=== PATIENT | male | born 1985 | race Caucasian/White ===

== ENCOUNTER 2019-10-30 18:14 | Inpatient (IN) | payer SELFPAY ==
[~2019-10-30] VITALS: Ht 182.9 cm; Wt 78.1 kg
--- NOTE | 2019-10-30 18:28 | ED Back Pain ---
General Chief Complaint: Back Problems Stated Complaint: R SIDE PAIN Source of Information: Patient Exam Limitations: No Limitations History of Present Illness Date Seen by Provider: Oct 30, 2019 Time Seen by Provider: 18:25 Initial Comments To ER with c/o Right flank pain x4-5 weeks, intolerable today. He's had some cloudy dark urine he states and thought that he had a urinary tract infection but never sought treatment. He states that he doesn't leave his house months, isn't employed and hasn't left the [facility]. He is found to be febrile on arrival, reports a chronic "smoker's cough", no shortness of breath. Timing/Duration: Getting Worse, Intermittent Severity: Moderate Associated Symptoms: denies symptoms Allergies and Home Medications Allergies Coded Allergies: No Known Drug Allergies (Unverified , 10/30/19) Patient Home Medication List Home Medication List Reviewed: Yes Review of Systems Constitutional: see HPI EENTM: see HPI Respiratory: no symptoms reported Cardiovascular: no symptoms reported Genitourinary: no symptoms reported Musculoskeletal: see HPI Skin: no symptoms reported Psychiatric/Neurological: No Symptoms Reported Past Sqycrud-Yijvur-Vcajkr Hx Patient Social History Recent Foreign Travel: No Contact w/Someone Who Travel: No Physical Exam Vital Signs Vital Signs - First Documented 10/30/19 18:23 Temp 37.9 Pulse 109 Resp 19 B/P (MAP) 122/80 (94) O2 Delivery Room Air Capillary Refill : Height, Weight, BMI Height: '" Weight: lbs. oz. kg; BMI Method: General Appearance: No Apparent Distress, WD/WN HEENT: PERRL/EOMI, TMs Normal Neck: Full Range of Motion, Normal Inspection Cardiovascular: Normal Peripheral Pulses, Tachycardia Respiratory: No Accessory Muscle Use, No Respiratory Distress Gastrointestinal: Normal Bowel Sounds, Non Tender, Soft Back: CVA Tenderness (R) Extremity: Normal Capillary Refill Neurologic/Psychiatric: Alert, Oriented x3 Skin: Normal Color, Warm/Dry Progress/Results/Core Measures Results/Orders Lab Results Laboratory Tests Test 10/30/19 18:36 10/30/19 18:43 10/30/19 19:16 Range/Units White Blood Count 11.5 H 4.3-11.0 10^3/uL Red Blood Count 4.43 4.35-5.85 10^6/uL Hemoglobin 13.9 13.3-17.7 G/DL Hematocrit 40 40-54 % Mean Corpuscular Volume 90 80-99 FL Mean Corpuscular Hemoglobin 31 25-34 PG Mean Corpuscular Hemoglobin Concent 35 32-36 G/DL Red Cell Distribution Width 13.4 10.0-14.5 % Platelet Count 420 H 130-400 10^3/uL Mean Platelet Volume 9.8 7.4-10.4 FL Neutrophils (%) (Auto) 76 H 42-75 % Lymphocytes (%) (Auto) 14 12-44 % Monocytes (%) (Auto) 10 0-12 % Eosinophils (%) (Auto) 1 0-10 % Basophils (%) (Auto) 0 0-10 % Neutrophils # (Auto) 8.7 H 1.8-7.8 X 10^3 Lymphocytes # (Auto) 1.6 1.0-4.0 X 10^3 Monocytes # (Auto) 1.2 H 0.0-1.0 X 10^3 Eosinophils # (Auto) 0.1 0.0-0.3 10^3/uL Basophils # (Auto) 0.0 0.0-0.1 10^3/uL Sodium Level 133 L 135-145 MMOL/L Potassium Level 3.1 L 3.6-5.0 MMOL/L Chloride Level 101 98-107 MMOL/L Carbon Dioxide Level 21 21-32 MMOL/L Anion Gap 11 5-14 MMOL/L Blood Urea Nitrogen 6 L 7-18 MG/DL Creatinine 1.07 0.60-1.30 MG/DL Estimat Glomerular Filtration Rate > 60 BUN/Creatinine Ratio 6 Glucose Level 177 H 70-105 MG/DL Calcium Level 8.5 8.5-10.1 MG/DL Corrected Calcium 8.9 8.5-10.1 MG/DL Total Bilirubin 0.9 0.1-1.0 MG/DL Aspartate Amino Transf (AST/SGOT) 23 5-34 U/L Alanine Aminotransferase (ALT/SGPT) 35 0-55 U/L Alkaline Phosphatase 101 40-136 U/L Total Protein 7.5 6.4-8.2 GM/DL Albumin 3.5 3.2-4.5 GM/DL Urine Color YELLOW Urine Clarity CLOUDY Urine pH 6.5 5-9 Urine Specific [place] <=1.005 1.016-1.022 Urine Protein 1+ H NEGATIVE Urine Glucose (UA) NEGATIVE NEGATIVE Urine Ketones NEGATIVE NEGATIVE Urine Nitrite NEGATIVE NEGATIVE Urine Bilirubin 1+ H NEGATIVE Urine Urobilinogen 2.0 < = 1.0 MG/DL Urine Leukocyte Esterase 3+ H NEGATIVE Urine RBC (Auto) 1+ H NEGATIVE Urine RBC 0-2 /HPF Urine WBC >100 H /HPF Urine Crystals PRESENT H /LPF Urine Amorphous Sediment FEW LIVAN URATES H /LPF Urine Bacteria TRACE /HPF Urine Casts NONE /LPF Urine Mucus NEGATIVE /LPF Urine Culture Indicated YES My Orders Orders - MICHELLE PEREZ APRN Cbc With Automated Diff (10/30/19 18:22) Comprehensive Metabolic Panel (10/30/19 18:22) Ed Iv/Invasive Line Start (10/30/19 18:22) Ua Culture If Indicated (10/30/19 18:22) Ketorolac Injection (Toradol Injection) (10/30/19 18:30) Ct Abd/Pelvis Wo(Kidney Stone) (10/30/19 18:49) Potassium Chloride (Tablet) (Klor Con Ta (10/30/19 19:00) Urine Culture (10/30/19 18:43) Blood Culture (10/30/19 19:05) Lactic Acid Analyzer (10/30/19 19:05) Ceftriaxone For Iv Use (Rocephin For I (10/30/19 19:15) Ns Iv 1000 Ml (Sodium Chloride 0.9%) (10/30/19 19:15) Medications Given in ED Current Medications Medications Dose Ordered Sig/Keith Route Start Time Stop Time Status Last Admin Dose Admin Ceftriaxone Sodium 1000 mg/ Sterile Water 10 ml @ 200 mls/hr ONCE ONCE IV 10/30/19 19:15 10/30/19 19:17 DC 10/30/19 19:21 200 MLS/HR Ketorolac Tromethamine 15 mg ONCE ONCE IVP 10/30/19 18:30 10/30/19 18:31 DC 10/30/19 18:40 15 MG Potassium Chloride 40 meq ONCE ONCE PO 10/30/19 19:00 10/30/19 19:01 DC 10/30/19 18:58 40 MEQ Vital Signs/I&O 10/30/19 18:23 Temp 37.9 Pulse 109 Resp 19 B/P (MAP) 122/80 (94) O2 Delivery Room Air Diagnostic Imaging Diagonstic Imaging: CT Comments NAME: VIKA NEIL [facility] REC#: [id number] PT STATUS: REG ER : 1985 PHYSICIAN: MICHELLE PEREZ APRN ADMIT DATE: 10/30/19/ER Draft Date of Exam:10/30/19 CT ABD/PELVIS WO(KIDNEY STONE) PROCEDURE: CT urinary tract, rule out kidney stone. TECHNIQUE: Multiple contiguous axial images were obtained through the abdomen and pelvis without the use of intravenous contrast. Auto Exposure Controls were utilized during the CT exam to meet ALARA standards for radiation dose reduction. INDICATION: Right flank pain for several days. FINDINGS: The liver, gallbladder and bile ducts are normal. The spleen, pancreas and adrenals are normal. The kidneys, ureters and bladder are normal. The appendix is filled with air and is not dilated. This is a retrocecal appendix the tip behind the ascending colon. Adjacent to the tip is some mild inflammation with no focal mass or fluid collection. No appendicolith is seen. The adjacent colon appears normal. The small bowel is normal. There is no free intraperitoneal air or fluid. IMPRESSION: There are mild inflammatory changes adjacent to the tip of the appendix with the remainder of the appendix appearing normal. This could be a localized inflammation of the tip of the appendix. No other abnormality is seen. Dictated on workstation # [id number] Dict: 10/30/191914 Trans: 10/30/191919 [facility] [id number] Interpreted by: VIKA HARDING MD Electronically signed by: Departure Communication (Admissions) Time/Spoke to Admitting Phy: 19:[address] Medrano, he'll review the images as he is currently in a case. I then spoke with Dr. Mathur, these inflammatory changes around the tip of the appendix are likely from pyelonephritis in my opinion as he has a urinary tract infection, symptoms for a few weeks, and the tip of the appendix goes superiorly paralleling course of the ureter ending near the inferior aspect of the kidney Impression Primary Impression: Pyelonephritis Additional Impression: possible appendicitis Disposition: ADMITTED INPATIENT Condition: Stable Admissions Decision to Admit Reason: Admit from ER (General) Decision to Admit/Date: Oct 30, 2019 Time/Decision to Admit Time: 19:31 Departure-Patient Inst. Referrals: NO,LOCAL PHYSICIAN (PCP/Family) Primary Care Physician MICHELLE PEREZ FUMIGATOR AND STERILIZER Oct 30, 2019 18:28
[2019-10-30] MEDS ORDERED: KETOROLAC 30 MG/ML VIAL IVP ONE (18:30)
[2019-10-30 18:41] LABS: BASOPHILS % (AUTO) 0 % (0-10); EOSINOPHILS # (AUTO) 0.1 10^3/uL (0.0-0.3); EOSINOPHILS % (AUTO) 1 % (0-10); HEMATOCRIT 40 % (40-54); HEMOGLOBIN 13.9 G/DL (13.3-17.7); LYMPHOCYTES # (AUTO) 1.6 X 10^3 (1.0-4.0); LYMPHOCYTES % (AUTO) 14 % (12-44); MEAN CORPUSCULAR HEMOGLOBIN 31 PG (25-34); MEAN CORPUSCULAR HGB CONC 35 G/DL (32-36); MEAN CORPUSCULAR VOLUME 90 FL (80-99); MEAN PLATELET VOLUME 9.8 FL (7.4-10.4); MONOCYTES # (AUTO) 1.2 X 10^3 (0.0-1.0); MONOCYTES % (AUTO) 10 % (0-12); NEUTROPHILS # (AUTO) 8.7 X 10^3 (1.8-7.8); NEUTROPHILS % (AUTO) 76 % (42-75); PLATELET COUNT 420 10^3/uL (130-400); RED CELL DISTRIBUTION WIDTH 13.4 % (10.0-14.5); WHITE BLOOD COUNT 11.5 10^3/uL (4.3-11.0)
[2019-10-30 18:48] LABS: CLARITY,URINE CLOUDY; COLOR,URINE YELLOW; GLUCOSE, URINE (UA) NEGATIVE (NEGATIVE); KETONES,URINE NEGATIVE (NEGATIVE); LEUKOCYTE ESTERASE ,URINE 3+ (NEGATIVE); NITRITE,URINE NEGATIVE (NEGATIVE); PH,URINE 6.5 (5-9); PROTEIN,URINE 1+ (NEGATIVE)
[2019-10-30 18:51] LABS: ALBUMIN 3.5 GM/DL (3.2-4.5); CHLORIDE 101 MMOL/L (98-107); POTASSIUM 3.1 MMOL/L (3.6-5.0); SODIUM 133 MMOL/L (135-145)
[2019-10-30 18:52] LABS: CALCIUM 8.5 MG/DL (8.5-10.1)
[2019-10-30 18:53] LABS: GLUCOSE 177 MG/DL (70-105)
[2019-10-30 18:54] LABS: TOTAL PROTEIN 7.5 GM/DL (6.4-8.2)
[2019-10-30 18:55] LABS: BILIRUBIN,TOTAL 0.9 MG/DL (0.1-1.0); CARBON DIOXIDE 21 MMOL/L (21-32)
[2019-10-30 18:57] LABS: ALKALINE PHOSPHATASE 101 U/L (40-136); CREATININE SERUM 1.07 MG/DL (0.60-1.30); GFR ESTIMATED > 60
[2019-10-30 18:58] LABS: BUN/CREATININE RATIO 6
[2019-10-30 19:00] LABS: ALANINE AMINOTRANSFERASE 35 U/L (0-55)
[2019-10-30 19:00] LABS: BILIRUBIN,URINE 1+ (NEGATIVE); WBC,URINE >100 /HPF
[2019-10-30] MEDS ORDERED: KCL 10 MEQ TAB (MICRO K) PO ONE (19:00)
[2019-10-30 19:02] LABS: BACTERIA,URINE TRACE /HPF; RBC,URINE 0-2 /HPF
[2019-10-30 19:03] LABS: AMORPHOUS SEDIMENT,UR FEW AMOR URATES /LPF
[2019-10-30] MEDS ORDERED: NS IV 1000 ML 1,000 ML IV SCH (19:15)
[2019-10-30] MEDS ORDERED: cefTRIAXone FOR IV USE 1,000 MG in WATER (STERILE) FOR INJECTION 10 ML IV ONE (19:15)
--- NOTE | 2019-10-30 19:21 | Diagnostic Imaging Report ---
PROCEDURE: CT urinary tract, rule out kidney stone. TECHNIQUE: Multiple contiguous axial images were obtained through the abdomen and pelvis without the use of intravenous contrast. Auto Exposure Controls were utilized during the CT exam to meet ALARA standards for radiation dose reduction. INDICATION: Right flank pain for several days. FINDINGS: The liver, gallbladder and bile ducts are normal. The spleen, pancreas and adrenals are normal. The kidneys, ureters and bladder are normal. The appendix is filled with air and is not dilated. This is a retrocecal appendix the tip behind the ascending colon. Adjacent to the tip is some mild inflammation with no focal mass or fluid collection. No appendicolith is seen. The adjacent colon appears normal. The small bowel is normal. There is no free intraperitoneal air or fluid. IMPRESSION: There are mild inflammatory changes adjacent to the tip of the appendix with the remainder of the appendix appearing normal. This could be a localized inflammation of the tip of the appendix. No other abnormality is seen. Dictated by: Dictated on workstation # [id number]
[2019-10-30] MEDS ORDERED: ONDANSETRON 4 MG/2 ML (SDV) Z0FRAN IVP PRN (19:30)
[2019-10-30] MEDS ORDERED: LOPERAMIDE 2 MG (IMODIUM) TABLET PO PRN (19:30)
[2019-10-30] MEDS ORDERED: BISACODYL 10 MG SUPP (DULCOLAX) PR PRN (19:30)
[2019-10-30] MEDS ORDERED: KETOROLAC 30 MG/ML VIAL IVP PRN (19:30)
[2019-10-30] MEDS ORDERED: HYDROmorphone 2 MG/ML VIAL (DILAUDID) IVP PRN (19:30)
[2019-10-30] MEDS ORDERED: ALPRAZolam 0.25 MG (XANAX) TAB PO PRN (19:30)
[2019-10-30] MEDS ORDERED: MELATONIN 3 MG TABLET PO PRN (19:30)
[2019-10-30] MEDS ORDERED: LACTULOSE SYRUP 10GM/15ML (ENULOSE) 30ML UDC PO PRN (19:30)
[2019-10-30] MEDS ORDERED: ONDANSETRON 4 MG (ZOFRAN) ORAL DISSOLVE TAB PO PRN (19:30)
[2019-10-30] MEDS ORDERED: CALCIUM CARBONATE 500 MG (TUMS) TAB.CHEW PO PRN (19:30)
[2019-10-30] MEDS ORDERED: DOCUSATE SODIUM 100 MG (COLACE) CAP PO PRN (19:30)
[2019-10-30] MEDS ORDERED: guaiFENesin/CODEINE (ROBITUSSIN AC) 10ML UDC PO PRN (19:30)
[2019-10-30] MEDS ORDERED: PROMETHAZINE INJ 25 MG/ML (PHENERGAN) AMP IM PRN (19:30)
[2019-10-30] MEDS ORDERED: diphenhydrAMINE 25 MG TAB (BENADRYL) PO PRN (19:30)
[2019-10-30] MEDS ORDERED: ONDANSETRON 4 MG/2 ML (SDV) Z0FRAN IVP ONE (19:45)
[2019-10-30] MEDS ORDERED: FAMOTIDINE 20MG/2ML IV (PEPCID) IVP ONE (19:45)
[2019-10-30] MEDS ORDERED: NICOTINE 2 MG LOZENGE (COMMIT) MM PRN (20:00)
[2019-10-30] MEDS ORDERED: ENOXAPARIN 40 MG/0.4 ML (LOVENOX) SYR SC SCH (20:00)
[2019-10-30 20:07] VITALS: BP 110/73
[2019-10-30 20:11] VITALS: BP 122/50
[2019-10-30] MEDS ORDERED: RT-ALBUTEROL/IPRATROPIUM 3 ML (DUONEB) VIAL INH PRN (20:15)
--- NOTE | 2019-10-30 20:22 | Consultation - Surgery ---
History of Present Illness History of Present Illness Patient Consulted On(sruthi/time) 10/30/19 20:17 Time Seen by Provider: 20:01 History of Present Illness Surgery is asked to consult regarding RLQ and flank pain. HPI per ED: To ER with c/o Right flank pain x4-5 weeks, intolerable today. He's had some cloudy dark urine he states and thought that he had a urinary tract infection but never sought treatment. He states that he doesn't leave his house months, isn't employed and hasn't left the [facility]. He is found to be febrile on arrival, reports a chronic "smoker's cough", no shortness of breath. Timing/Duration: Getting Worse, Intermittent Severity: Moderate Associated Symptoms: denies symptoms When I saw pt he stated pain was 5-6 out of 10 at its worst and didn't really radiate anywhere. Movement does seem to make the pain worse. Allergies and Home Medications Allergies Coded Allergies: No Known Drug Allergies (Unverified , 10/30/19) Patient Home Medication List Home Medication List Reviewed: Yes Past Uifqohe-Flofvk-Rdhuzr Hx Patient Social History Alcohol Use: Regular Use Recreational Drug Use: Yes Drug of Choice: POT, ADERAL Smoking Status: Current Everyday Smoker Type Used: Cigarettes 2nd Hand Smoke Exposure: Yes Recent Foreign Travel: No Contact w/Someone Who Travel: No Recent Infectious Disease Expo: No Recent Hopitalizations: No Seasonal Allergies Seasonal Allergies: No Surgeries History of Surgeries: Yes Surgeries: Orthopedic Respiratory History of Respiratory Disorde: No Cardiovascular History of Cardiac Disorders: No Neurological History of Neurological Disord: No Reproductive System Sexually Transmitted Disease: No Genitourinary History of Genitourinary Disor: No Gastrointestinal History of Gastrointestinal Di: No Musculoskeletal History of Musculoskeletal Dis: Yes Musculoskeletal Disorders: Fractures Endocrine History of Endocrine Disorders: No HEENT History of HEENT Disorders: No Cancer History of Cancer: No Psychosocial History of Psychiatric Problem: Yes (PT UNSURE OF PSYCH ISSUES. HAS TAKEN LITHIUM) Integumentary History of Skin or Integumenta: No Blood Transfusions History of Blood Disorders: No Family Medical History Significant Family History: Other Conditions/Hx (Pt states he doesn' t know his biologic dad and mother has no medical problems) Review of Systems-General Constitutional: chills, malaise, weakness EENTM: No blurred vision, No double vision, No mouth pain, No mouth swelling, No epistaxis Respiratory: No dyspnea on exertion, No hemoptysis, No short of breath Cardiovascular: No chest pain; palpitations Gastrointestinal: abdominal pain (RLQ); No jaundice, No nausea, No vomiting Genitourinary: dysuria, frequency; No hematuria Musculoskeletal: No joint pain, No joint swelling, No muscle pain Skin: No change in color, No change in hair/nails Psychiatric/Neurological: Denies Anxiety, Denies Seizure, Denies Tremors Physical Exam-General Problems Physical Exam Vital Signs Vital Signs - First Documented 10/30/19 10/30/19 18:23 19:57 Temp 37.9 Pulse 109 Resp 19 B/P (MAP) 122/80 (94) Pulse Ox 100 O2 Delivery Room Air Capillary Refill : Less Than 3 Seconds General Appearance: WD/WN, no apparent distress Eyes: Bilateral Eye PERRL, Bilateral Eye EOMI HEENT: pharynx normal; No scleral icterus (R), No scleral icterus (L) Neck: non-tender, full range of motion, supple, normal inspection Respiratory: chest non-tender, lungs clear, normal breath sounds, no respiratory distress, no accessory muscle use Cardiovascular: no murmur, tachycardia Gastrointestinal: normal bowel sounds, soft, no organomegaly, no pulsatile mass, tenderness (RLQ) Rectal: deferred Back: no CVA tenderness, no vertebral tenderness Extremities: normal range of motion, non-tender, normal inspection, no pedal edema, no calf tenderness, normal capillary refill 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, no motor/sensory deficits, alert, normal mood/affect, oriented x 3 Skin: normal color, warm/dry Lymphatic: no adenopathy (neck, axilla or groin) Data Review Labs Laboratory Tests 10/30/19 18:36: White Blood Count 11.5H, Red Blood Count 4.43, Hemoglobin 13.9, Hematocrit 40, Mean Corpuscular Volume 90, Mean Corpuscular Hemoglobin 31, Mean Corpuscular Hemoglobin Concent 35, Red Cell Distribution Width 13.4, Platelet Count 420H, Mean Platelet Volume 9.8, Neutrophils (%) (Auto) 76H, Lymphocytes (%) (Auto) 14, Monocytes (%) (Auto) 10, Eosinophils (%) (Auto) 1, Basophils (%) (Auto) 0, Neutrophils # (Auto) 8.7H, Lymphocytes # (Auto) 1.6, Monocytes # (Auto) 1.2H, Eosinophils # (Auto) 0.1, Basophils # (Auto) 0.0, Sodium Level 133L, Potassium Level 3.1L, Chloride Level 101, Carbon Dioxide Level 21, Anion Gap 11, Blood Urea Nitrogen 6L, Creatinine 1.07, Estimat Glomerular Filtration Rate > 60, BUN/Creatinine Ratio 6, Glucose Level 177H, Calcium Level 8.5, Corrected Calcium 8.9, Total Bilirubin 0.9, Aspartate Amino Transf (AST/SGOT) 23, Alanine A minotransferase (ALT/SGPT) 35, Alkaline Phosphatase 101, Total Protein 7.5, Albumin 3.5 10/30/19 18:43: Urine Color YELLOW, Urine Clarity CLOUDY, Urine pH 6.5, Urine Specific [place] <=1.005, Urine Protein 1+H, Urine Glucose (UA) NEGATIVE, Urine Ketones NEGATIVE, Urine Nitrite NEGATIVE, Urine Bilirubin 1+H, Urine Urobilinogen 2.0, Urine Leukocyte Esterase 3+H, Urine RBC (Auto) 1+H, Urine RBC 0-2, Urine WBC >100H, Urine Crystals PRESENTH, Urine Amorphous Sediment FEW LIVAN URATESH, Urine Bacteria TRACE, Urine Casts NONE, Urine Mucus NEGATIVE, Urine Culture Indicated YES 10/30/19 19:16: Lactic Acid Level 1.[address] ABD/PELVIS WO(KIDNEY STONE) PROCEDURE: CT urinary tract, rule out kidney stone. TECHNIQUE: Multiple contiguous axial images were obtained through the abdomen and pelvis without the use of intravenous contrast. Auto Exposure Controls were utilized during the CT exam to meet ALARA standards for radiation dose reduction. INDICATION: Right flank pain for several days. FINDINGS: The liver, gallbladder and bile ducts are normal. The spleen, pancreas and adrenals are normal. The kidneys, ureters and bladder are normal. The appendix is filled with air and is not dilated. This is a retrocecal appendix the tip behind the ascending colon. Adjacent to the tip is some mild inflammation with no focal mass or fluid collection. No appendicolith is seen. The adjacent colon appears normal. The small bowel is normal. There is no free intraperitoneal air or fluid. IMPRESSION: There are mild inflammatory changes adjacent to the tip of the appendix with the remainder of the appendix appearing normal. This could be a localized inflammation of the tip of the appendix. No other abnormality is seen. Dictated by: Dictated on workstation # [id number] Dict: 10/30/191914 Trans: 10/30/191932 [facility] [id number] Interpreted by: VIKA HARDING MD Electronically signed by: VIKA HARDING MD 10/30/191932 Assessment/Plan Assessment/Plan Assessment/Plan RLQ pain I looked at the CT and believe that his pain is from a Pyelonephritis. It looks like the tip of the appendix is retrocecal; but the inflammation is away from it. Will monitor him and make sure nothing changes. Would keep him NPO for just in case and repeat labs in am. ROSALEE ENGLAND DO Oct 30, 2019 20:22
--- NOTE | 2019-10-30 20:40 | NUR ---
VIKA NEIL admitted to room 403-1, with an admitting diagnosis of PYLONEPHRITIS, on 10/30/19 from ED via WHEELCHAIR, accompanied by HOSPITAL STAFF. VIKA NEIL introduced to surroundings, call light, bed controls, phone, TV, temperature control, lights, meal times, smoking policy, visitor policy, side rail policy, bathrooms and showers. Patient Rights given to patient in the handbook. VIKA NEIL verbalizes understanding that [facility] is not responsible for the loss or damage to any personal effects or valuables that are kept in the patients posession during their hospitalization. VIKA NEIL verbalizes understanding of Interdisciplinary Patient Education. Patient and/or family were informed about the Rapid Response Team and its purpose.
[2019-10-30] MEDS: NS IV 1000 ML 1,000 ML IV SCH (22:59)
[2019-10-30] MEDS: SENNA W/DOCUSATE (SENOKOT S) TABLET PO SCH (22:59)
[2019-10-30] MEDS: ACETAMINOPHEN 500 MG TAB (TYLENOL) PO PRN (23:00)
[2019-10-30 23:40] VITALS: BP 111/68
--- OUTSIDE RECORDS SUMMARY | 2019-10-30 23:56 | XMS REPORT | Continuity of Care Document ---
Author Organization Unknown Address Unknown Phone Unavailable Allergies Active Description Code Type Severity Reaction Onset Reported/Identified Relationship to Patient Clinical Status Yes No Known Drug Allergies [id number] Drug Allergy Unknown N/A 10/30/2019 Medications There is no data. Problems There is no data. Procedures There is no data. Results Test Result Range Complete blood count (CBC) with automate d white blood cell (WBC) differential - 10/30/19 18:36 Blood leukocytes automated count (number/volume) 11.5 10*3/uL 4.3-11.0 Blood erythrocytes automated count (number/volume) 4.43 10*6/uL 4.35-5.85 Venous blood hemoglobin measurement (mass/volume) 13.9 g/dL 13.3-17.7 Blood hematocrit (volume fraction) 40 % 40-54 Automated erythrocyte mean corpuscular volume 90 [ foz_us] 80-99 Automated erythrocyte mean corpuscular h emoglobin (mass per erythrocyte) 31 pg 25-34 Automated erythrocyte mean corpuscular h emoglobin concentration measurement (mass/volume) 35 g/dL 32-36 Automated erythrocyte distribution width ratio 13. 4 % 10.0- 14.5 Automated blood platelet count (count/volume) 420 10*3/uL 130-400 Automated blood platelet mean volume measurement 9.8 [foz_us] 7.4-10.4 Automated blood neutrophils/100 leukocytes 76 % 42-75 Automated blood lymphocytes/100 leukocytes 14 % 12-44 Blood monocytes/100 leukocytes 10 % 0-12 Automated blood eosinophils/100 leukocytes 1 % 0-10 Automated blood basophils/100 leukocytes 0 % 0-10 Blood neutrophils automated count (number/volume) 8.7 10*3 1.8-7.8 Blood lymphocytes automated count (number/volume) 1.6 10*3 1.0-4.0 Blood monocytes automated count (number/volume) 1. 2 10*3 0.0-1.0 Automated eosinophil count 0.1 10*3/uL 0 .0-0.3 Automated blood basophil count (count/volume) 0.0 10*3/uL 0.0-0.1 Comprehensive metabolic panel - 10/30/19 18:36 Serum or plasma sodium measurement (moles/volume) 133 mmol/L 135-145 Serum or plasma potassium measurement (moles/volume) 3.1 mmol/L 3.6-5.0 Serum or plasma chloride measurement (moles/volume) 101 mmol/L 98-107 Carbon dioxide 21 mmol/L 21-32 Serum or plasma anion gap determination (moles/volume) 11 mmol/L 5-14 Serum or plasma urea nitrogen measurement (mass/volume ) 6 mg/dL 7-18 Serum or plasma creatinine measurement (mass/volume) 1.07 mg/dL 0.60-1.30 Serum or plasma urea nitrogen/creatinine mass ratio 6 NRG Serum or plasma creatinine measurement w ith calculation of estimated glomerular filtration rate > NRG Serum or plasma glucose measurement (mass/volume) 177 mg/dL 70-105 Serum or plasma calcium measurement (mass/volume) 8.5 mg/dL 8.5-10.1 Serum or plasma total bilirubin measurement (mass/volu me) 0.9 mg/dL 0.1-1.0 Serum or plasma alkaline phosphatase jalil surement (enzymatic activity/volume) 101 U/L 40-136 Serum or plasma aspartate aminotransfera se measurement (enzymatic activity/volume) 23 U/L 5-34 Serum or plasma alanine aminotransferase measurement (enzymatic activity/volume) 35 U/L 0-55 Serum or plasma protein measurement (mass/volume) 7.5 g/dL 6.4-8.2 Serum or plasma albumin measurement (mass/volume) 3.5 g/dL 3.2-4.5 CALCIUM CORRECTED 8.9 mg/dL 8.5-10.1 Complete urinalysis with reflex to cultu re - 10/30/19 18:43 Urine color determination YELLOW NRG Urine clarity determination CLOUDY NR G Urine pH measurement by test strip 6.5 5-9 Specific gravity of urine by test strip <= 1.016-1.022 Urine protein assay by test strip, semi-quantitative 1+ NEGATIVE Urine glucose detection by automated test strip NE GATIVE NEGATIVE Erythrocytes detection in urine sediment by light micr oscopy 1+ NEGATIVE Urine ketones detection by automated test strip NE GATIVE NEGATIVE Urine nitrite detection by test strip NEGATIVE NEGATIVE Urine total bilirubin detection by test strip 1+ NEGATIVE Urine urobilinogen measurement by automated test strip (mass/volume) 2.0 mg/dL < = 1.0 Urine leukocyte esterase detection by dipstick 3+ NEGATIVE Automated urine sediment erythrocyte cou nt by microscopy (number/high power field) [HPF] NRG Automated urine sediment leukocyte count by microscopy (number/high power field) > [HPF] NRG Bacteria detection in urine sediment by light microsco py TRACE NRG Crystals detection in urine sediment by light microsco py PRESENT NRG Casts detection in urine sediment by light microscopy NONE NRG Mucus detection in urine sediment by light microscopy NEGATIVE NRG Complete urinalysis with reflex to culture YES NRG Amorphous sediment detection in urine sediment by ligh t microscopy FEW LIVAN URATES NRG Blood lactic acid measurement (moles/vol ume) - 10/30/19 19:16 Blood lactic acid measurement (moles/volume) 1.10 mmol/L 0.50-2.00 Encounters ACCT No. Visit Date/Time Discharge Status Pt. Type Provider Facility Loc./Unit Complaint [id number] 10/30/2019 19:29:[address] Inpatient DOROTHY PENA DO [facility] 4TH PYELONEPHRITIS
--- OUTSIDE RECORDS SUMMARY | 2019-10-31 00:23 | XMS REPORT | Continuity of Care Document ---
Author Organization Unknown Address Unknown Phone Unavailable Allergies Active Description Code Type Severity Reaction Onset Reported/Identified Relationship to Patient Clinical Status Yes No Known Drug Allergies [id number] Drug Allergy Unknown N/A 10/30/2019 Medications There [...] Status Pt. Type Provider Facility Loc./Unit Complaint [id number] 10/30/2019 19:29:[address] Inpatient DOROTHY PENA DO [facility] 4TH PYELONEPHRITIS
[2019-10-31] MEDS: NS IV 1000 ML 1,000 ML IV SCH ×2 (02:00→05:46)
[2019-10-31 04:25] VITALS: BP 104/68
[2019-10-31 04:50] LABS: BASOPHILS # (AUTO) 0.1 10^3/uL (0.0-0.1); BASOPHILS % (AUTO) 1 % (0-10); EOSINOPHILS # (AUTO) 0.1 10^3/uL (0.0-0.3); EOSINOPHILS % (AUTO) 1 % (0-10); HEMATOCRIT 40 % (40-54); HEMOGLOBIN 13.8 G/DL (13.3-17.7); LYMPHOCYTES # (AUTO) 1.9 X 10^3 (1.0-4.0); LYMPHOCYTES % (AUTO) 17 % (12-44); MEAN CORPUSCULAR HEMOGLOBIN 32 PG (25-34); MEAN CORPUSCULAR HGB CONC 34 G/DL (32-36); MEAN CORPUSCULAR VOLUME 92 FL (80-99); MEAN PLATELET VOLUME 10.1 FL (7.4-10.4); MONOCYTES # (AUTO) 1.5 X 10^3 (0.0-1.0); MONOCYTES % (AUTO) 13 % (0-12); NEUTROPHILS # (AUTO) 7.5 X 10^3 (1.8-7.8); NEUTROPHILS % (AUTO) 68 % (42-75); PLATELET COUNT 410 10^3/uL (130-400); RED CELL DISTRIBUTION WIDTH 13.6 % (10.0-14.5); WHITE BLOOD COUNT 10.9 10^3/uL (4.3-11.0)
[2019-10-31 05:04] LABS: ALBUMIN 3.2 GM/DL (3.2-4.5); CHLORIDE 106 MMOL/L (98-107); POTASSIUM 4.3 MMOL/L (3.6-5.0); SODIUM 139 MMOL/L (135-145)
[2019-10-31 05:05] LABS: CALCIUM 8.3 MG/DL (8.5-10.1)
[2019-10-31 05:06] LABS: GLUCOSE 110 MG/DL (70-105); TOTAL PROTEIN 7.1 GM/DL (6.4-8.2)
[2019-10-31 05:07] LABS: CARBON DIOXIDE 23 MMOL/L (21-32)
[2019-10-31 05:08] LABS: BILIRUBIN,TOTAL 0.8 MG/DL (0.1-1.0)
[2019-10-31 05:10] LABS: ALKALINE PHOSPHATASE 92 U/L (40-136); CREATININE SERUM 0.99 MG/DL (0.60-1.30); GFR ESTIMATED > 60
[2019-10-31 05:11] LABS: BUN/CREATININE RATIO 6
[2019-10-31 05:13] LABS: ALANINE AMINOTRANSFERASE 32 U/L (0-55)
[2019-10-31 08:11] VITALS: BP 120/69
[2019-10-31] MEDS: ACETAMINOPHEN 500 MG TAB (TYLENOL) PO PRN (08:41)
[2019-10-31] MEDS: SENNA W/DOCUSATE (SENOKOT S) TABLET PO SCH (08:42)
[2019-10-31] MEDS ORDERED: cefTRIAXone FOR IV USE 1,000 MG in WATER (STERILE) FOR INJECTION 10 ML IV SCH (09:00)
[2019-10-31] MEDS ORDERED: IBUP-2185 PO (10:00)
--- NOTE | 2019-10-31 10:22 | NUR ---
SPOKE WITH PT TO COMPLETE THE MED REC PT DENIES TAKING ANY PRESCRIPTION MEDICATION OTC MEDS: IBUPROFEN PRN I DID UPDATE THE PATIENTS PREFERRED PHARMACY (HE CHOSE [facility])- HE HAS NEVER USED A PHARMACY BEFORE AND I LET HIM KNOW THAT IF HE CHANGES HIS MIND AND WOULD RATHER USE ANOTHER PHARMACY TO LET US KNOW
[2019-10-31 12:23] VITALS: BP 109/62
[2019-10-31] MEDS ORDERED: LEVO750T9 PO (12:49)
[2019-10-31 14:14] VITALS: BP 109/62
== END 2019-10-31 14:15 | disposition home or self-care (01) | DRG 690 ==
LOC: EDUNIT# 18:14 → ER 18:16 → 4TH 19:29
PROVIDERS: ADMIT Internal Medicine; ATTEND Internal Medicine
DX: N12 Tubulo-interstitial nephritis, not specified as acute or chronic (principal); F17.210 Nicotine dependence, cigarettes, uncomplicated
CPT/HCPCS: 36415; 74176; 80053; 81000; 83605; 85025; 87040; 87077; 87088; 87186